=== PATIENT | female | born 1950 | race African-American/Black ===

== ENCOUNTER 2017-06-19 14:20 | Emergency (ER) | payer OTHER ==
[~2017-06-19] VITALS: Ht 160 cm; Wt 61.2 kg
[~2017-06-19 14:20] MED LIST: ARICEPT 5 MG TAB5 MG PO; ATIVAN1 MG PO; BACTRIM DS TAB1 EACH PO; CITRATE OF MAG296 ML PO; CLINDAMYCIN HC150 MG PO; FLONASE 0.05%50 MCG NASAL; GARAMYCIN5 M1 OP; IBUPROFEN 600600 M1 PO; IBUPROFEN 800800 MG PO; LISINOPRIL20 MG PO; NORCO 5-325 TA1 EACH PO; ONDANSETRON HCL4 M2 PO; POTASSIUM20 PO; PREVACID DIS; PREVACID15 MG; TRAMADOL 50 MG50 MG PO; ZOFRAN ODT4 MG PO
[2017-06-19 16:32] VITALS: BP 148/88
== END 2017-06-19 16:33 | disposition home or self-care (01) ==
LOC: ER 14:20
DX: J06.9 Acute upper respiratory infection, unspecified (principal); J30.2 Other seasonal allergic rhinitis; Z90.710 Acquired absence of both cervix and uterus

== ENCOUNTER 2017-07-18 20:17 | Emergency (ER) | payer OTHER ==
[~2017-07-18] VITALS: Ht 160 cm; Wt 59.0 kg
[2017-07-18 20:44] LABS: URINE BILIRUBIN NEGATIVE (Negative); URINE BLOOD NEGATIVE (Negative); URINE COLOR YELLOW; URINE GLUCOSE-RANDOM* NEGATIVE (Negative); URINE KETONES NEGATIVE (Negative); URINE LEUKOCYTES-REFLEX TRACE (Negative); URINE PROTEIN (DIPSTICK) NEGATIVE (Negative); URINE UROBILINOGEN 0.2 E.U./dl (0.2-1.0)
[2017-07-18 21:24] LABS: ABSOLUTE NEUTROPHILS 1.7 thou/uL (1.4-8.2); BASOPHILS 0.7 % (0.0-2.0); HEMATOCRIT 39.8 % (37.0-47.0); HEMOGLOBIN 13.5 gm/dL (12.0-15.0); LYMPHOCYTES 56.4 % (24.0-44.0); MCH 31.1 pg (26.0-34.0); MCV 91.5 fL (80.0-100.0); MONOCYTES 6.3 % (1.0-8.0); PLATELET COUNT 237 thou/uL (150-400); POLYS 32.6 % (36.0-66.0); RBC 4.35 mil/uL (4.20-5.00); RDW 14.1 % (10.5-14.5); WBC 5.3 thou/uL (4.0-11.0)
[2017-07-18 21:26] LABS: MANUAL DIFF NO
[2017-07-18 21:32] LABS: CALCIUM 9.2 mg/dL (8.5-10.1); CREATININE 0.9 mg/dL (0.6-1.0); POTASSIUM 3.2 mmol/L (3.5-5.1)
[2017-07-18 21:39] LABS: ALBUMIN 3.7 g/dL (3.4-5.0); TOTAL BILIRUBIN 0.2 mg/dL (<0.1-1.0); TOTAL PROTEIN 7.3 g/dL (6.4-8.2)
[2017-07-19 01:07] VITALS: BP 143/71
== END 2017-07-19 00:38 | disposition home or self-care (01) ==
LOC: ER 20:17
PROVIDERS: Physician Assistant
DX: R10.11 Right upper quadrant pain (principal); R10.33 Periumbilical pain; Z90.710 Acquired absence of both cervix and uterus

== ENCOUNTER 2017-12-26 14:34 | Emergency (ER) | payer OTHER ==
[~2017-12-26] VITALS: Ht 160 cm; Wt 68.0 kg
--- NOTE | ~2017-12-26 | EKG ---
[place] [address] [facility] [place] [address] ELECTROCARDIOGRAM REPORT Name: ADIN BARNHART Room #: REG KAELA Ann#: [id number] Admission: 12/26/17 Attend Phys: Discharge: Date of : 48 Report #: [id number] THIS REPORT FOR: //name// [facility] ED Test Date: 2017-12-26 Test Time: 15:13:21 Pat Name: ADIN BARNHART Department: Room: Gender: F Substation Operator: JESUS : 1950 Requested By: Taj Godoy Order Number: [id number] MD: Pedrito Griffin Measurements Intervals [place] Rate: 67 P: 69 TX: 182 QRS: -20 QRSD: 93 T: 5 QT: 417 QTc: 441 Interpretive Statements Sinus rhythm Consider left atrial enlargement Borderline left axis deviation Anteroseptal infarct, old Compared to ECG 07/25/2015 18:50:35 Myocardial infarct finding now present Electronically Signed On 12-26-2017 16:14:03 CDT by Pedrito Griffin [email or web address] <ELECTRONICALLY SIGNED> By: Pedrito Griffin MD 12/26/17 1614 1513 Pedrito Griffin MD /AZALIA
[2017-12-26 16:17] LABS: ABSOLUTE NEUTROPHILS 2.5 thou/uL (1.4-8.2); BASOPHILS 0.7 % (0.0-2.0); EOSINOPHILS 2.5 % (0.0-3.0); HEMATOCRIT 41.1 % (37.0-47.0); HEMOGLOBIN 13.6 gm/dL (12.0-15.0); LYMPHOCYTES 38.2 % (24.0-44.0); MCH 30.5 pg (26.0-34.0); MCHC 33.1 g/dL (28.0-37.0); MONOCYTES 6.9 % (1.0-8.0); PLATELET COUNT 231 thou/uL (150-400); POLYS 51.7 % (36.0-66.0); RBC 4.47 mil/uL (4.20-5.00); RDW 14.5 % (10.5-14.5); WBC 4.8 thou/uL (4.0-11.0)
[2017-12-26 16:26] LABS: ANION GAP 5 mmol/L (7-16); BUN 15 mg/dL (7-18); CALCIUM 9.5 mg/dL (8.5-10.1); CHLORIDE 105 mmol/L (98-107); CO2 29 mmol/L (21-32); CREATININE 0.7 mg/dL (0.6-1.0); GLUCOSE 127 mg/dL (74-106); POTASSIUM 4.2 mmol/L (3.5-5.1); SODIUM 139 mmol/L (136-145)
[2017-12-26 16:34] LABS: ALBUMIN 3.5 g/dL (3.4-5.0); LIPASE 123 U/L (73-393); SGOT 24 U/L (15-37); SGPT 21 U/L (30-65); TOTAL BILIRUBIN 0.4 mg/dL (<0.1-1.0); TOTAL PROTEIN 7.3 g/dL (6.4-8.2); TROPONIN-I < 0.04 ng/mL (<0.06)
[2017-12-26 16:54] LABS: URINE BILIRUBIN NEGATIVE (Negative); URINE BLOOD NEGATIVE (Negative); URINE CLARITY CLEAR; URINE COLOR YELLOW; URINE GLUCOSE-RANDOM* NEGATIVE (Negative); URINE KETONES NEGATIVE (Negative); URINE LEUKOCYTES-REFLEX NEGATIVE (Negative); URINE NITRITE-REFLEX NEGATIVE (Negative); URINE PROTEIN (DIPSTICK) NEGATIVE (Negative); URINE UROBILINOGEN 0.2 E.U./dl (0.2-1.0)
[2017-12-26 17:52] VITALS: BP 167/83
== END 2017-12-26 17:53 | disposition home or self-care (01) ==
LOC: ER 14:34
PROVIDERS: Emergency Medicine
DX: K59.00 Constipation, unspecified (principal); R10.9 Unspecified abdominal pain; G89.29 Other chronic pain; Z90.710 Acquired absence of both cervix and uterus

== ENCOUNTER 2018-02-19 10:28 | Emergency (ER) | payer OTHER ==
[~2018-02-19] VITALS: Ht 165.1 cm; Wt 59.0 kg
[2018-02-19] MEDS ORDERED: OMEPRAZOLE40 MG PO (10:37)
[2018-02-19 10:52] LABS: URINE BILIRUBIN NEGATIVE (Negative); URINE BLOOD TRACE (Negative); URINE CLARITY CLEAR; URINE COLOR YELLOW; URINE GLUCOSE-RANDOM* NEGATIVE (Negative); URINE KETONES NEGATIVE (Negative); URINE NITRITE-REFLEX NEGATIVE (Negative); URINE PROTEIN (DIPSTICK) NEGATIVE (Negative); URINE UROBILINOGEN 0.2 E.U./dl (0.2-1.0)
[2018-02-19 10:54] LABS: URINE LEUKOCYTES-REFLEX 1+ (Negative)
[2018-02-19 11:10] LABS: CASTS None Seen /LPF (None Seen)
[2018-02-19 11:11] LABS: URINE RBC 0-2 Rare /HPF (0-2)
[2018-02-19 11:12] LABS: BACTERIA-REFLEX 1-9 Few /HPF (None Seen); CRYSTALS None Seen /LPF (None Seen)
[2018-02-19 11:22] LABS: MUCUS >6 Heavy strn/LPF (None Seen); SQUAMOUS >10 Many /LPF (0-3); URINE WBC-REFLEX 0-5 Rare /HPF (0-5)
[2018-02-19 11:35] LABS: ABSOLUTE NEUTROPHILS 1.9 thou/uL (1.4-8.2); BASOPHILS 0.8 % (0.0-2.0); EOSINOPHILS 1.1 % (0.0-3.0); HEMATOCRIT 40.9 % (37.0-47.0); HEMOGLOBIN 13.6 gm/dL (12.0-15.0); LYMPHOCYTES 45.7 % (24.0-44.0); MCH 30.8 pg (26.0-34.0); MCHC 33.3 g/dL (28.0-37.0); MCV 92.4 fL (80.0-100.0); PLATELET COUNT 246 thou/uL (150-400); POLYS 44.4 % (36.0-66.0); RBC 4.43 mil/uL (4.20-5.00); RDW 14.1 % (10.5-14.5); WBC 4.3 thou/uL (4.0-11.0)
[2018-02-19 11:38] LABS: CALCIUM 9.3 mg/dL (8.5-10.1); CREATININE 0.9 mg/dL (0.6-1.0); POTASSIUM 3.4 mmol/L (3.5-5.1)
[2018-02-19 11:44] LABS: ALBUMIN 3.7 g/dL (3.4-5.0); TOTAL BILIRUBIN 0.5 mg/dL (<0.1-1.0); TOTAL PROTEIN 7.3 g/dL (6.4-8.2)
[2018-02-19] MEDS ORDERED: FLEET ENEMA EX230 ML RECTAL ×2 (12:50→12:59)
[2018-02-19] MEDS ORDERED: MIRALAX17 GM PO (12:52)
[2018-02-19 12:58] VITALS: BP 158/94
== END 2018-02-19 13:08 | disposition home or self-care (01) ==
LOC: ER 10:28
PROVIDERS: Physician Assistant
DX: K59.00 Constipation, unspecified (principal); Z90.710 Acquired absence of both cervix and uterus

== ENCOUNTER 2018-06-28 16:38 | Inpatient (IN) | payer OTHER ==
[~2018-06-28] VITALS: Ht 165.1 cm; Wt 59.7 kg
--- NOTE | ~2018-06-28 | HC ---
[facility] [place] [address] [facility]: [facility] IN M.R.#: [id number] Admission: 06/28/18 Attend Phys: Tyler Echeverria Discharge: Date of : 48 Report #: [id number] THIS REPORT FOR: //name// CC: FARHAT physician/PCP Tyler Echeverria HISTORY OF PRESENT ILLNESS: The patient is a 67-year-old female with a history of Alzheimer's disease. She was brought to the Emergency Room by her . He tells me that she has had an altered mental status for several days, although the Emergency Room information states that she had an altered mental status the day prior to admission. He told me that she had been sleeping more than usual for the past 3 days and had not eaten well. She is usually able to communicate, but has also not been able to carry on a conversation. The patient has a history of dementia and sees the neurologist at [facility]. She is on a combination of donepezil and memantine. Usually, she is able to recognize family members, but cannot always recognize them. PAST MEDICAL HISTORY: Alzheimer disease. PAST SURGICAL HISTORY: Hysterectomy, two rotator cuff surgeries. MEDICATIONS: Donepezil 10 mg daily, memantine 10 mg b.i.d., Protonix 40 mg daily. ALLERGIES: None. PHYSICAL EXAMINATION: VITAL SIGNS: Temperature 36.7, pulse rate 53, respiratory rate 18, blood pressure 146/55, bedside pulse oximetry 94% on room air. NEUROLOGIC: Cranial nerves 2-12 are grossly intact. Motor exam demonstrates symmetrical strength in all 4 extremities with tone and bulk normal. Reflexes symmetrical throughout. Plantar responses mute. Coordination demonstrates no evidence of dysmetria. Gait was not tested. LABORATORY DATA: Hematology: White blood cell count 5.3, hemoglobin 14.3, hematocrit 43, MCV 92.2, platelet count 288,000. Urinalysis negative. Chemistry: Sodium 141, potassium 3.4, chloride 105, carbon dioxide 25, BUN 11, creatinine 0.8, glucose 84, calcium 8.9, total bilirubin 0.3, AST 17, ALT 19, alkaline phosphatase 111, total protein 7.8, albumin 3.5. Cholesterol 321, LDL 183, HDL 128. B12 821. Folate 31.9. TSH 1.5. IMAGING STUDY: CT scan of the head demonstrates mild chronic changes as noted. No acute intracranial process identified. IMPRESSION AND PLAN: This patient does have difficulty carrying on a conversation and is confused. She is disoriented to place and time. I have ordered an MRI of the brain for tomorrow. She may require light sedation to [address] [address] CONSULTATION Name: ADIN BARNHART Room #: 461-P ADM IN M.R.#: [id number] Admission: 06/28/18 Attend Phys: Tyler Echeverria Discharge: Date of : 48 Report #: [id number] complete the study. It should be noted that the most common cause of change in mentation in dementia is the underlying dementia itself; however, stroke must be ruled out in this patient. I see that memantine has not been added to the patient's list of medication. Her brought her medication bottles and showed them to me. She is on memantine 10 mg twice a day and I have added this to her medications. I also think it would be helpful if we can get her medical records from the neurologist at [facility] to see what her baseline is like. I see that she has already had screening B12 and TSH here and is completely unremarkable. I thank you for your kind referral of the patient and will continue to follow her with you. <ELECTRONICALLY SIGNED> By: Yanni Savage DO 06/30/18 1359 1416 0003 Yanni Savage DO /nt
--- NOTE | ~2018-06-28 | EKG ---
[address] [place] [address] ELECTROCARDIOGRAM REPORT Name: ADIN BARNHART Room #: 461-P ADM IN M.R.#: [id number] Admission: 06/28/18 Attend Phys: Tyler Echeverria Discharge: Date of : 48 Report #: [id number] THIS REPORT FOR: //name// [facility] ED Test Date: 2018-06-28 Test Time: 18:22:36 Pat Name: ADIN BARNHART Department: Room: 46 Gender: F Player Manager: JUANA : 1950 Requested By: Bharti Islas Order Number: [id number] MD: Ayden Garcia Measurements Intervals [place] Rate: 54 P: 25 MD: 191 QRS: -6 QRSD: 96 T: 28 QT: 444 QTc: 421 Interpretive Statements Sinus bradycardia Cannot rule out septal infarct age indeterminate Compared to ECG 12/26/2017 15:13:21 No significant change was found Electronically Signed On 06-29-2018 11:31:54 CDT by Ayden Garcia [email or web address] <ELECTRONICALLY SIGNED> By: Ayden Garcia MD, [facility] 06/29/18 113 21 21 Ayden Garcia MD, [facility] /EPI
[~2018-06-28 16:38] MED LIST changes: +FLEET ENEMA EX230 ML RECTAL; +MIRALAX17 GM PO; +OMEPRAZOLE40 MG PO
[2018-06-28 16:48] VITALS: BP 130/88
[2018-06-28 18:59] LABS: ABSOLUTE NEUTROPHILS 2.5 thou/uL (1.4-8.2); BASOPHILS 1.3 % (0.0-2.0); EOSINOPHILS 1.6 % (0.0-3.0); HEMOGLOBIN 14.3 gm/dL (12.0-15.0); LYMPHOCYTES 43.3 % (24.0-44.0); MCH 30.7 pg (26.0-34.0); MCHC 33.3 g/dL (28.0-37.0); MCV 92.2 fL (80.0-100.0); MONOCYTES 5.4 % (1.0-8.0); PLATELET COUNT 288 thou/uL (150-400); POLYS 48.4 % (36.0-66.0); RBC 4.66 mil/uL (4.20-5.00); RDW 14.1 % (10.5-14.5); WBC 5.2 thou/uL (4.0-11.0)
[2018-06-28 19:14] LABS: ANION GAP 6 mmol/L (7-16); BUN 17 mg/dL (7-18); CHLORIDE 106 mmol/L (98-107); CO2 28 mmol/L (21-32); CREATININE 0.9 mg/dL (0.6-1.0); GLUCOSE 90 mg/dL (74-106); SODIUM 140 mmol/L (136-145)
[2018-06-28 19:22] LABS: ALBUMIN 3.5 g/dL (3.4-5.0); SGOT 17 U/L (15-37); SGPT 19 U/L (30-65); TOTAL BILIRUBIN 0.3 mg/dL (<0.1-1.0); TOTAL PROTEIN 7.8 g/dL (6.4-8.2); TROPONIN-I <0.06 ng/mL (<0.06)
[2018-06-28 19:47] LABS: URINE BILIRUBIN NEGATIVE (Negative); URINE BLOOD NEGATIVE (Negative); URINE CLARITY CLEAR; URINE COLOR YELLOW; URINE GLUCOSE-RANDOM* NEGATIVE (Negative); URINE KETONES NEGATIVE (Negative); URINE LEUKOCYTES-REFLEX NEGATIVE (Negative); URINE NITRITE-REFLEX NEGATIVE (Negative); URINE PROTEIN (DIPSTICK) NEGATIVE (Negative); URINE SPECIFIC GRAVITY 1.015 (1.005-1.035); URINE UROBILINOGEN 0.2 E.U./dl (0.2-1.0)
[2018-06-28 19:55] LABS: AMP/METHAMP Negative (Negative); BARBITURATES Negative (Negative); BENZODIAZEPINES Negative (Negative); COCAINE Negative (Negative); METHADONE Negative (Negative); OPIATES Negative (Negative); PCP Negative (Negative)
[2018-06-28] MEDS ORDERED: PROTONIX40 M1 PO (19:57)
[2018-06-28 20:34] VITALS: BP 122/78
[2018-06-28 20:37] VITALS: BP 122/78
[2018-06-28 21:12] VITALS: BP 141/70
[2018-06-28 22:14] VITALS: BP 146/55
[2018-06-29 06:40] LABS: CALCIUM 8.9 mg/dL (8.5-10.1); CREATININE 0.8 mg/dL (0.6-1.0); POTASSIUM 3.8 mmol/L (3.5-5.1)
[2018-06-29 06:46] LABS: CHOLESTEROL 321 mg/dL (<200); HDL CHOLESTEROL 128 mg/dL (>40); LDL CHOLESTEROL 183 mg/dL (<100); TC:HDL 2.5 Ratio (Not establshd); TRIGLYCERIDE 50 mg/dL (<150); VLDL 10 mg/dL (<40)
[2018-06-29 06:48] LABS: SERUM ASSESSMENT Clear
[2018-06-29 07:47] LABS: FOLIC ACID 31.9 ng/mL (8.6-58.9)
[2018-06-29 14:30] VITALS: BP 119/46
[2018-06-29 19:26] VITALS: BP 161/69
[2018-06-30 07:55] VITALS: BP 121/70
[2018-06-30] MEDS ORDERED: NAMENDA 5 MG TAB5 M1 PO (10:49)
[2018-06-30] MEDS ORDERED: ASPIRIN325 PO (10:49)
[2018-06-30] MEDS ORDERED: LIPITOR 20 MG T20 M1 PO (10:54)
[2018-06-30 12:57] VITALS: BP 121/70
== END 2018-06-30 14:45 | disposition home health service (06) | DRG 65 ==
LOC: ER 16:38 → EROBS 20:38 → 4W 20:38 → ENTRNSPT 06-30 14:33 → EDTRNSPTSTS 06-30 14:41 → 4W 06-30 14:45
PROVIDERS: Nurse Practitioner Family; Student in an Organized Health Care Education/Training Program
DX: I63.9 Cerebral infarction, unspecified (principal); G93.40 Encephalopathy, unspecified; G46.3 Brain stem stroke syndrome; R41.0 Disorientation, unspecified; G30.9 Alzheimer's disease, unspecified; F02.80 Dementia in other diseases classified elsewhere, unspecified severity, without behavioral disturbance, psychotic disturbance, mood disturbance, and anxiety; I10 Essential (primary) hypertension; E78.5 Hyperlipidemia, unspecified; Z53.29 Procedure and treatment not carried out because of patient's decision for other reasons; K21.9 Gastro-esophageal reflux disease without esophagitis; K59.00 Constipation, unspecified; Z90.710 Acquired absence of both cervix and uterus; Z79.899 Other long term (current) drug therapy
CPT/HCPCS: 10040

== ENCOUNTER → 2018-07-17 | Outpatient (CLI) | payer OTHER ==
[~2018-07-17] MED LIST changes: +ASPIRIN325 PO; +LIPITOR 20 MG T20 M1 PO; +NAMENDA 5 MG TAB5 M1 PO; +PROTONIX40 M1 PO
--- NOTE | ~2018-07-17 | 2DMMODE ---
[facility] [address] [place] [address] 2 D/M-MODE ECHOCARDIOGRAM Name: ADIN BARNHART Room #: REG CL [facility]#: [id number] Admission: 07/17/18 Attend Phys: Physician not on s Discharge: Date of : 48 Date of Service: 07/17/18 1039 Report #: [id number] THIS REPORT FOR: //name// APPROVED REPORT Study performed: 07/17/2018 09:38:56 EXAM: Comprehensive 2D, Doppler, and color-flow Echocardiogram Patient Location: Out-Patient Status: routine BSA: 1.57 HR: 62 bpm BP: 158/80 mmHg Other Information Study Quality: Adequate/Technically Difficult Technically limited study due to uncooperative patient, low parasternal window. Indications Hx of stroke 2D Dimensions RVDd: 23.97 mm IVSd: 9.99 (7-11mm) LVOT Diam: 18.53 (18-24mm) LVDd: 35.91 mm PWd: 8.69 (7-11mm) LVDs: 28.96 (25-40mm) Aortic Root: 25.47 mm IVC: 14.00 mm Volumes Left Atrial Volume (Systole) Single Plane 4CH: 24.32 mL Single Plane 2CH: 25.42 mL LA ESV Index: 17.00 mL/m2 Aortic Valve AoV Peak Frandy.: 1.18 m/s AO Peak Gr.: 5.58 mmHg LVOT Max P.16 mmHg LVOT Max V: 0.89 m/s DEBORAH Vmax: 2.03 cm2 Mitral Valve E/A Ratio: 0.8 MV Decel. Time: 242.60 ms [facility] [email or web address] [place] [address] 2 D/M-MODE ECHOCARDIOGRAM Name: ADIN BARNHART Room #: REG CL Marissa#: [id number] Admission: 07/17/18 Attend Phys: Physician not on s Discharge: Date of : 48 Date of Service: 07/17/18 1039 Report #: [id number] MV E Max Frandy.: 0.64 m/s MV A Frandy.: 0.83 m/s MV PHT: 70.35 ms IVRT: 107.27 ms Pulmonary Valve PV Peak Frandy.: 0.75 m/s PV Peak Gr.: 2.23 mmHg Pulmonary Vein P Vein S: 0.26 m/s P Vein A: 0.29 m/s P Vein D: 0.27 m/s P Vein A Dur.: 96.9 msec P Vein S/D Ratio: 0.96 Tricuspid Valve RAP Estimate: 5.00 mmHg Left Ventricle The left ventricle is normal size. There is normal left ventricular wall thickness. The left ventricular systolic function is normal. The left ventricular ejection fraction is within the normal range. LVEF is 55-60%. Transmitral Doppler flow pattern suggests mild impaired LV relaxation. Right Ventricle The right ventricle is normal size. The right ventricular systolic function is normal. Atria The left atrium size is normal. The right atrium size is normal. Aortic Valve Aortic valve is mildly calcified. No aortic regurgitation is present. There is no aortic valvular stenosis. Mitral Valve Mitral valve leaflets are mildly thickened. Mild mitral regurgitation. No evidence of mitral valve stenosis. Tricuspid Valve The tricuspid valve is normal in structure. Trace tricuspid regurgitation. Unable to assess PA pressure. Pulmonic Valve Pulmonic valve is not well visualized. [facility] [place] [address] 2 D/M-MODE ECHOCARDIOGRAM Name: ADIN BARNHART Room #: REG CL Latricia#: [id number] Admission: 07/17/18 Attend Phys: Physician not on s Discharge: Date of : 48 Date of Service: 07/17/18 1039 Report #: [id number] Great Vessels The aortic root is normal in size. IVC is normal in size and collapses >50% with inspiration. Pericardium There is no pericardial effusion. <Conclusion> The left ventricle is normal size. LVEF is 55-60%. Aortic valve is mildly calcified. Mitral valve leaflets are mildly thickened. Mild mitral regurgitation. The tricuspid valve is normal in structure. Trace tricuspid regurgitation. Unable to assess PA pressure. Pulmonic valve is not well visualized. There is no pericardial effusion. <ELECTRONICALLY SIGNED> By: Kurtis Farrell MD 07/17/18 1039 38 Kurtis Farrell MD /INF
== END ==
LOC: RAD 07:36
DX: Z12.31 Encounter for screening mammogram for malignant neoplasm of breast (principal); R41.0 Disorientation, unspecified; Z86.73 Personal history of transient ischemic attack (TIA), and cerebral infarction without residual deficits

== ENCOUNTER 2019-09-30 08:19 | Emergency (ER) | payer OTHER ==
[~2019-09-30] VITALS: Ht 165.1 cm; Wt 65.8 kg
== END 2019-09-30 09:30 | disposition home or self-care (01) ==
LOC: ER 08:19
DX: M25.562 Pain in left knee (principal); I10 Essential (primary) hypertension; E78.5 Hyperlipidemia, unspecified; K21.9 Gastro-esophageal reflux disease without esophagitis; Z90.710 Acquired absence of both cervix and uterus

== ENCOUNTER 2019-11-13 07:32 | Emergency (ER) | payer OTHER ==
[~2019-11-13] VITALS: Ht 165.1 cm; Wt 70.8 kg
[2019-11-13 08:20] LABS: ABSOLUTE NEUTROPHILS 3.2 thou/uL (1.4-8.2); BASOPHILS 1.8 % (0.0-2.0); EOSINOPHILS 2.6 % (0.0-3.0); HEMATOCRIT 41.4 % (37.0-47.0); HEMOGLOBIN 13.5 gm/dL (12.0-15.0); LYMPHOCYTES 28.7 % (24.0-44.0); MCH 30.4 pg (26.0-34.0); MCHC 32.5 g/dL (28.0-37.0); MCV 93.6 fL (80.0-100.0); MONOCYTES 10.6 % (1.0-8.0); PLATELET COUNT 255 thou/uL (150-400); POLYS 56.3 % (36.0-66.0); RBC 4.42 mil/uL (4.20-5.00); RDW 14.1 % (10.5-14.5); WBC 5.7 thou/uL (4.0-11.0)
[2019-11-13 08:22] LABS: URINE BILIRUBIN NEGATIVE (Negative); URINE BLOOD NEGATIVE (Negative); URINE CLARITY CLEAR; URINE COLOR YELLOW; URINE GLUCOSE-RANDOM* NEGATIVE (Negative); URINE KETONES NEGATIVE (Negative); URINE LEUKOCYTES-REFLEX NEGATIVE (Negative); URINE NITRITE-REFLEX NEGATIVE (Negative); URINE PROTEIN (DIPSTICK) NEGATIVE (Negative); URINE UROBILINOGEN 0.2 E.U./dl (0.2-1.0)
[2019-11-13 08:23] LABS: CALCIUM 9.3 mg/dL (8.5-10.1); CREATININE 0.8 mg/dL (0.6-1.0); POTASSIUM 3.8 mmol/L (3.5-5.1)
[2019-11-13 08:29] LABS: ALBUMIN 3.7 g/dL (3.4-5.0); TOTAL BILIRUBIN 0.3 mg/dL (<0.1-1.0); TOTAL PROTEIN 7.7 g/dL (6.4-8.2)
[2019-11-13] MEDS ORDERED: EC-NAPROSYN375 MG PO (09:19)
[2019-11-13] MEDS ORDERED: MIRALAX119 GM PO (09:19)
[2019-11-13 09:40] VITALS: BP 139/82
== END 2019-11-13 09:41 | disposition home or self-care (01) ==
LOC: ER 07:32
PROVIDERS: Emergency Medicine
DX: M54.5 Low back pain (principal); R10.9 Unspecified abdominal pain; I10 Essential (primary) hypertension; E78.5 Hyperlipidemia, unspecified; K21.9 Gastro-esophageal reflux disease without esophagitis; F03.90 Unspecified dementia, unspecified severity, without behavioral disturbance, psychotic disturbance, mood disturbance, and anxiety; Z90.710 Acquired absence of both cervix and uterus